=== PATIENT | male | born 1990 | race Two or more races ===

== ENCOUNTER → 2024-05-25 12:04 | Outpatient (REF) | payer BC, SELFPAY | LOC: DHSLP 12:04 | PROVIDERS: ATTENDING PHYSICIAN Internal Medicine Cardiovascular Disease; FAMILY PHYSICIAN Internal Medicine | DX: G47.33 Obstructive sleep apnea (adult) (pediatric) (principal) | CPT/HCPCS: 95800 ==

== ENCOUNTER → 2024-10-07 13:53 | Outpatient (REF) | payer BC, SELFPAY | LOC: DHSLP 13:53 | PROVIDERS: ATTENDING PHYSICIAN Internal Medicine Critical Care Medicine; FAMILY PHYSICIAN Internal Medicine | DX: G47.33 Obstructive sleep apnea (adult) (pediatric) (principal); R09.02 Hypoxemia | CPT/HCPCS: 95810 ==